=== PATIENT | male | born 1975 | race Two or more races ===

== ENCOUNTER 2024-10-04 10:30 | Outpatient (CLI) | payer OTHER | END 2024-10-04 10:37 | disposition home or self-care (01) | LOC: RAD 10:30 | PROVIDERS: ATTEND Orthopaedic Surgery | DX: M25.521 Pain in right elbow (principal); M79.621 Pain in right upper arm; S40.021A Contusion of right upper arm, initial encounter; S49.91XA Unspecified injury of right shoulder and upper arm, initial encounter; S50.01XA Contusion of right elbow, initial encounter; X58.XXXA Exposure to other specified factors, initial encounter; Y93.9 Activity, unspecified; Y92.9 Unspecified place or not applicable; Y99.9 Unspecified external cause status ==